=== PATIENT | male | born 1970 | race Caucasian/White ===

== ENCOUNTER 2018-03-01 19:00 | Emergency (ER) | payer OTHER ==
[~2018-03-01] VITALS: Ht 177.8 cm; Wt 70.3 kg
[2018-03-01] MEDS ORDERED: ULTRAM 50MG TAB50 MG PO (20:25)
== END 2018-03-01 20:40 | disposition home or self-care (01) ==
LOC: ER 19:00
DX: M51.26 Other intervertebral disc displacement, lumbar region (principal); F17.210 Nicotine dependence, cigarettes, uncomplicated

== ENCOUNTER 2018-03-03 12:40 | Emergency (ER) | payer OTHER ==
[~2018-03-03] VITALS: Ht 177.8 cm; Wt 72.6 kg
[~2018-03-03 12:40] MED LIST: ULTRAM 50MG TAB50 MG PO
[2018-03-03 13:20] LABS: URINE BILIRUBIN NEGATIVE (Negative); URINE BLOOD NEGATIVE (Negative); URINE CLARITY CLEAR; URINE COLOR YELLOW; URINE GLUCOSE-RANDOM* NEGATIVE (Negative); URINE KETONES NEGATIVE (Negative); URINE LEUKOCYTES-REFLEX NEGATIVE (Negative); URINE NITRITE-REFLEX NEGATIVE (Negative); URINE PROTEIN (DIPSTICK) NEGATIVE (Negative); URINE UROBILINOGEN 0.2 E.U./dl (0.2-1.0)
[2018-03-03 13:49] LABS: BASOPHILS 0.7 % (0.0-2.0); EOSINOPHILS 1.6 % (0.0-3.0); HEMATOCRIT 44.3 % (42.0-52.0); HEMOGLOBIN 15.4 gm/dL (14.0-18.0); MCH 31.2 pg (26.0-34.0); MCHC 34.8 g/dL (28.0-37.0); MCV 89.7 fL (80.0-100.0); MONOCYTES 5.6 % (1.0-8.0); PLATELET COUNT 223 thou/uL (150-400); POLYS 58.1 % (36.0-66.0); RBC 4.93 mil/uL (4.50-6.00); RDW 13.3 % (10.5-14.5); WBC 8.6 thou/uL (4.0-11.0)
[2018-03-03 13:56] LABS: CREATININE 0.9 mg/dL (0.7-1.3); POTASSIUM 4.5 mmol/L (3.5-5.1)
[2018-03-03 14:02] LABS: ALBUMIN 3.7 g/dL (3.4-5.0); TOTAL BILIRUBIN 0.3 mg/dL (<0.1-1.0); TOTAL PROTEIN 7.3 g/dL (6.4-8.2)
[2018-03-03] MEDS ORDERED: SENNA-DOCUSATE1 EACH PO (15:18)
[2018-03-03] MEDS ORDERED: IBUPROFEN 600600 M1 PO (15:18)
[2018-03-03] MEDS ORDERED: NORCO 5-325 TA1 EACH PO (15:18)
[2018-03-03] MEDS ORDERED: PHENERGAN 25 MG25 M1 PO (15:19)
== END 2018-03-03 15:43 | disposition home or self-care (01) ==
LOC: ER 12:40
PROVIDERS: Emergency Medicine
DX: N20.1 Calculus of ureter (principal); F17.210 Nicotine dependence, cigarettes, uncomplicated; R35.0 Frequency of micturition; R11.10 Vomiting, unspecified